=== PATIENT | female | born 1995 | race Caucasian/White ===

== ENCOUNTER 2023-12-01 15:18 | Outpatient (OUT) | payer BC, SELFPAY ==
[2023-12-01 16:05] LABS: Alanine Aminotransferase 39 U/L (14-59); Albumin Globulin Ratio 0.8; Albumin Level 3.5 g/dL (3.4-5.0); Alkaline Phosphatase 115 U/L (46-116); Anion Gap 12.1; Aspartate Amino Transferase 20 U/L (15-37); Bilirubin Total 0.5 mg/dL (0.2-1.0); Calcium 9.1 mg/dL (8.5-10.1); Carbon Dioxide 25.8 mmol/L (21.0-32.0); Chloride 103 mmol/L (98-107); Chol HDL Ratio 3.8; Cholesterol 179 mg/dL (<=200); Estimated GFR (African America >60 (>=60); Estimated GFR (Non-African Ame >60 (>=60); Globulin 4.3 g/dL; Glucose 82 mg/dL (74-106); HDL Cholesterol 47 mg/dL (40-60); LDL Cholesterol Calculated 116.6 mg/dL; Potassium 3.9 mmol/L (3.5-5.1); Sodium 137 mmol/L (136-145); TSH W/ REFLEX FT4 2.481 uIU/mL (0.358-3.740); Total Protein 7.8 g/dL (6.4-8.2); Triglycerides 77 mg/dL (<=150); VLDL CHOLESTEROL 15.4 mg/dL
[2023-12-03 06:10] LABS: Vitamin B12 1079 pg/mL (232-1245)
== END 2023-12-01 15:19 | disposition home or self-care (01) ==
PROVIDERS: Visit Provider Nurse Practitioner Family
DX: I10 Essential (primary) hypertension (principal); F90.9 Attention-deficit hyperactivity disorder, unspecified type; E66.3 Overweight; E88.819 Insulin resistance, unspecified; E55.9 Vitamin D deficiency, unspecified
CPT/HCPCS: 36415; 80053; 80061; 82306; 82607; 84443

== ENCOUNTER 2024-02-03 10:50 | Outpatient (OUT) | payer BC, SELFPAY ==
[2024-02-03 11:09] LABS: Basophils Percent Auto 0.4 % (0.2-2.0); Eosinophils Absolute Auto 0.1 10^3/uL (0.0-0.7); Eosinophils Percent Auto 1.3 % (0.9-7.0); Hematocrit 38.2 % (36.0-48.0); Hemoglobin 12.3 g/dL (12.0-16.0); Immature Granulocytes Abs Auto 0.03 10^3/uL (0.00-0.03); Immature Granulocytes Pct Auto 0.4 % (0.0-0.5); Lymphocytes Absolute Auto 1.8 10^3/uL (1.2-3.8); Lymphocytes Percent Auto 23.5 % (20.5-60.0); Mean Corpuscular HGB Conc 32.2 g/dL (29.9-35.2); Mean Corpuscular Hemoglobin 27.5 pg (26.7-34.0); Mean Corpuscular Volume 85.5 fL (81.0-99.0); Mean Platelet Volume 8.9 fL (9.5-13.5); Monocytes Absolute Auto 0.5 10^3/uL (0.3-0.8); Monocytes Percent Auto 6.7 % (1.7-12.0); Neutrophils Absolute Auto 5.3 10^3/uL (1.4-6.5); Neutrophils Percent Auto 67.7 % (43.0-75.0); Platelet Count 343 10^3/uL (150-450); Red Blood Count 4.47 10^6/uL (4.20-5.40); Red Cell Distribution Width 14.4 % (11.0-15.0); White Blood Count 7.8 10^3/uL (4.0-11.0)
--- OUTSIDE RECORDS SUMMARY | 2024-02-03 11:10 | XMS_ITS | CCD ---
Author Organization [facility] Care Team Providers Care Fibrous Wallboard Inspector Name Role Phone SANTOS ROLLINS Attending Unavailable Javier CHAVIRA, Cheryl Villanueva Unavailable Medications Current Medications Medication Drug Class(es) Dates Sig (Normalized) Sig (Original) 24 hr amphetamine aspartate 5 mg / amphetamine sulfate 5 mg / dextroamphetamine saccharate 5 mg / dextroamphetamine sulfate 5 mg extended release oral capsule (4 sources) Central Nervous System Stimulant Start: 11-24-2023 take 1 capsule by mouth once daily in the morning amphetamine-dext roamphetamine XR (ADDERALL XR) 20 mg capsule Take 20 mg by mouth every morning. 11/24/2023 Active Start: 11-12-2023 End: 11-13-2023 take 1 tablet by mouth once daily Dextroamphetamine-Amphetamine (Adderall) 10 mg tablet Discontinued 10 MG PO Daily November 12, 2023 12:00am November 13, 2023 11:04am 24 hr buPROPion hydrochloride 150 mg extended release oral tablet (4 sources) Aminoketone Start: 11-12-2023 take 1 tablet by mouth once daily in the morning Bupropion Hcl (Wellbutrin Xl) 150 mg tablet extended release 24 hr Active 150 MG PO Every morning November 12, 2023 12:00am Dextroamphetamine-Amp hetamine (3 sources) Start: 11-13-2023 take 20 mg by mouth once daily in the morning Dextroamphetamine-A mphetamine Active 20 MG PO Every morning November 13, 2023 12:00am Completed/Discontinued Medications Medication Drug Class(es) Dates Sig (Normalized) Sig (Original) medroxyPROGESTERone acetate 10 mg oral tablet (3 sources) Progestin Start: End: take 1 tablet by mouth once daily Medroxyprogesterone (Provera) 10 mg tablet Discontinued 10 MG PO Daily November 12, 2023 12:00am November 13, 2023 11:05am Problems Problem Classification Problem Date Documented Da te Episodic/Chronic Administrative/social admission (3 sources) Patient encounter status; Translations: [Persons encountering health services in other specified circumstances] 12-15-2023 Episodic Anxiety disorders (11 sources) Posttraumatic stress disorder; Translations: [Post-traumatic stress disorder, unspecified] 11-12-2023 Chronic Attention-deficit, conduct, and disruptive behavior disorders (3 sources) Attention deficit hyperactivity disorder; Translations: [Attention-deficit hyperactivity disorder, unspecified type] 11-12-2023 Chronic Attention-deficit, conduct, and disruptive behavior disorders (3 sources) Attention-deficit hyperactivity disorder, unspecified type; Translations: [Attention deficit disorder with hyperactivity] 11-13-2023 Chronic Diabetes mellitus without complication (6 sources) Prediabetes; Translations: [Prediabetes] 11-13-2023 Episodic Essential hypertension (6 sources) Elevated blood pressure; Translations: [Essential (primary) hypertension] 11-12-2023 Chronic Headache; including migraine (4 sources) Migraine; Translations: [Migraine, unspecified, not intractable, without status migrainosus] 12-05-2023 Chronic Miscellaneous mental health disorders (1 source) Gender identity disorder of adulthood; 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] 12-15-2023 Chronic Mood disorders (3 sources) Major depressive disorder; Translations: [Major depressive disorder, single episode, unspecified] 11-12-2023 Chronic Nutritional deficiencies (6 sources) Vitamin D deficiency; Translations: [Vitamin D deficiency, unspecified] 11-13-2023 Chronic Other female genital disorders (3 sources) Abnormal uterine bleeding; Translations: [Other specified abnormal uterine and vaginal bleeding] 11-12-2023 Chronic Other nutritional; endocrine; and metabolic disorders (6 sources) Insulin resistance; Translations: [Insulin resistance] 11-13-2023 Chronic Other nutritional; endocrine; and metabolic disorders (3 sources) Overweight; Translations: [Overweight] 11-12-2023 Episodic Other nutritional; endocrine; and metabolic disorders (3 sources) Overweight; Translations: [Overweight] 11-13-2023 Episodic Residual codes; unclassified (3 sources) Gender identity finding; Translations: [Other specified health status] 11-12-2023 Episodic Results Test Name Value Interpretation Reference Range Facil ity CNOVon 12-15-2023 CNOV Office Visit (INTLKB) ---- CHA HWANG ([id number]) 1995 F Date Time Provider Department 12/15/23 2:00 PM SANTOS ROLLINS INTLKB During your visit today, we recorded the following information about you: Pulse Respiration Blood pressure Weight 82/minute 18/minute 137/79 129 kg Height Last Period 1.777 m 11/27/23 Santos Rollins MD 12/15/2023 3:04 PM Signed NEW PATIENT HISTORY AND PHYSICAL EXAM Cha Hwang is a 28 year old female presenting for [facility] ([facility]). HISTORY OF PRESENT ILLNESS Intake questionnaire was not completed prior to the visit and was discussed in detail as below. [facility] Transgender Surgery and Medicine Program (TSMP) Intake Form Name: John or Jason Pronouns: he/him SO: bisexual GI: transgender male Brand New Gender Care: Yes Sexual Hx Relationship: group home partner(named Arnol) nonbinary, AFAB Sexual active in last 6 months: Yes How many partners in the last 6 months: one What types of sex do you engage in: Oral Sexual function/concerns: No Maintains libido and activity LMP: 11/27, regular cycles, moderate to heavy, not painful just cramping What is the highest level of education you completed? 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 If yes, what do you smoke? No tobacco How much/often do you smoke #packs/cigarettes per day/week? Are you interested in smoking cessation? Do you drink alcohol? If yes, what do you drink? Joanna,mixed drinks How much/often do you drink per day/week? 2-3 How can we help you today? First visit/New patient Well adult/physical Mental/Emotional health concern Fertility counseling Pap/pelvic exam HIV screening/testing HIV care or prophylaxis Sexually transmitted infection screening/treatment Gender affirmation therapy - hormone initiation Gender affirmation therapy - hormone continuation Support with Coming Out/Sexual Orientation/Gender Identity Referral services [for what service(s)?] Do we have your permission to add an LGBTQ+ indicator on your demographics? Past Medical History (check all that apply): What health concerns or problems have you been told you have? High Blood Pressure/Hypertensi on Diabetes High cholesterol Heart Disease/Atheroscler osis Kidney Disease Asthma COPD/Emphysema Liver Disease Hep B/C infection Gallstones/Gallblad luis Disease Gastroesophageal Reflux/GERD Constipation Thyroid condition Overweight/Obesity Sleep apnea Cancer (if yes, what kind(s) Sexually Transmitted Infection, If yes, which infections Gonorrhea Chlamydia Non-gonoccocal urethritis (SANTY) Syphilis Pelvic Inflammatory Disease (PID) Genital warts/HPV infection Herpes/HSV genital infection Mental/Emotional Health Concerns: Depression- 7 yrs old dx Anxiety Problems with drugs/substances Problems with alcohol Tobacco smoking Surgical History: Please list any surgical procedures you have had: wisdom and gallbladder removal Allergies: Please list your food and medication allergies. Other Current/Previous Health Providers: Primary Care Provider: Cheryl Paulson [place] following for other health needs Mental Health Provider: Wilbert gutierrez Family History: Does a member of your family have a history of any of the following conditions (If so, who)? Deep vein thrombosis-there is a hx of clotting disorder but patient is unsure details Pulmonary embolism Heart attack Stroke Hypertension/High blood pressure Breast Cancer-PGM,70s Ovarian Cancer Uterine Cancer Testicular Cancer Please List any other health Conditions your family members live with: Gender Affirmation History: Identifies as a man for over 10 years, wanted to start hormone therapy but did not have insuranse coverage I was always a nick boy , dont call me lady, dont call me ma'am wanted to do boy stuff. Started to feel they were different when puberty started Did not speak with a provider at this time Had a name for it at 16 y.o considered themselves NB And at 18 started to identify as trans, was able to talk to a provider at age 20 years. started using Jason as their name at age 18 y.o Came out to trans to parents a few years ago, they are now support In college felt food to be themselves Has overall have good experience where people have been re Goals of Care: I want to be husky and hair I want my voice to drop I want facial hair Would be interested in GAS mastectomy Interested in Injection therapy Fertility Preservation/Contra ception: They would be interested in family but not biological children No desire for Additional questions: None HISTORIES No family history on file. No past medical history on file. No past surgical history on file. (more content not included)... Normal [facility] 12-14-2020 Consent [id number]:127 Normal [facility] In office Testingon 12-15-19 21 In office Testing [id number]:127 [facility] Registrationon 12-14-2020 Registration [id number]:127 [facility] Vital Signs Date Time Vital Sign Value Performing Clinician Dannie mckeon 12-26-2023 08:57-0400 Body height 179.[address] [facility] 12-26-2023 08:57-0400 Body mass index (BMI) [Ratio] 40.7 kg/m2 [facility] 12-26-2023 08:57-0400 Body weight 130.[address] [facility] 12-26-2023 08:57-0400 Diastolic blood pressure 77 mm[Hg] [facility] 12-26-2023 08:57-0400 Heart rate 73 /min [facility] 12-26-2023 08:57-0400 Respiratory rate 18 /min [facility] 12-26-2023 08:57-0400 SaO2% (BldA) [Mass fraction] 96 % [facility] 12-26-2023 08:57-0400 Systolic blood pressure 109 mm[Hg] [facility] 12-15-2023 13:55-0400 Body height 177.7 cm Santos Rollins MD Work Phone: [facility] 12-15-2023 13:55-0400 Body mass index (BMI) [Ratio] 40.85 kg/m2 Santos Rollins MD Work Phone: [facility] 12-15-2023 13:55-0400 Body weight 129 kg Santos Rollins MD Work Phone: [facility] 12-15-2023 13:55-0400 Diastolic blood pressure 79 mm[Hg] Santos Rollins MD Work Phone: [facility] 12-15-2023 13:55-0400 Heart rate 82 /min Santos Rollins MD Work Phone: [facility] 12-15-2023 13:55-0400 Respiratory rate 18 /min Santos Rollins MD Work Phone: [facility] 12-15-2023 13:55-0400 Systolic blood pressure 137 mm[Hg] Santos Rollins MD Work Phone: [facility] 11-13-2023 11:03-0400 Body height 179.[address] [facility] 11-13-2023 11:03-0400 Body mass index (BMI) [Ratio] 41.5 kg/m2 [facility] 11-13-2023 11:03-0400 Body weight 133.[address] [facility] 11-13-2023 11:03-0400 Diastolic blood pressure 72 mm[Hg] [facility] 11-13-2023 11:03-0400 Heart rate 67 /min [facility] 11-13-2023 11:03-0400 Respiratory rate 18 /min [facility] 11-13-2023 11:03-0400 SaO2% (BldA) [Mass fraction] 97 % [facility] 11-13-2023 11:03-0400 Systolic blood pressure 110 mm[Hg] [facility] Encounters Encounter Date Encounter Type Care Provider Facility Start: 12-26-2023 End: 12-26-2023 ambulatory [facility] Work Phone: Start: 12-26-2023 End: 12-26-2023 Patient encounter procedure [facility] Work Phone: Start: 12-15-2023 End: 12-15-2023 ambulatory SANTOS ROLLINS Facility:[facility] Start: 12-15-2023 End: 12-15-2023 Office outpatient new 45 minutes Santos Rollins MD Work Phone: [facility] Comment on above: Gender dysphoria in adult (Primary Dx); Screening for depression; Encounter for screening examination for other mental health and behavioral disorders; Encounter before starting medication Start: 12-10-2023 End: 12-10-2023 ambulatory [facility] Work Phone: Start: 12-10-2023 End: 12-10-2023 Patient encounter procedure [facility] Work Phone: Start: 11-13-2023 End: 11-13-2023 ambulatory [facility] Work Phone: Start: 11-13-2023 End: 11-13-2023 Patient encounter procedure [facility] Work Phone: Procedures Date Procedure Procedure Detail Performing Clinician Start: 12-15-2023 Adult depression screening assessment Santos Rollins MD Work Phone: Plan of Treatment Date Care Activity Detail Author Start: 12-14-2024 Anxiety Screening Anxiety Screening [facility] Start: 12-14-2024 Depression Screening Depression [facility] Start: 02-09-2024 End: 02-09-2024 Patient encounter procedure 02/09/2024 10:00 AM EST Office Visit [facility] [id number] [place] [phone] [place] Rollins MD [id number] [place] [address]. [place] [address] F/up [facility] Comment on above: F/up Start: 12-15-2023 End: 03-15-2024 CBC W Auto Differential panel - Blood COMPLETE BLOOD COUNT AND DIFFERENTIAL Lab Routine Encounter before starting medication Expected: 12/15/2023, Expires: 03/15/2024 [facility] Comment on above: Expected: 12/15/2023 , Expires: 03/15/2024 Start: 12-15-2023 End: 03-15-2024 Comprehensive metabolic 2000 panel - Serum or Plasma COMPREHENSIVE METABOLIC PANEL Lab Routine Encounter before starting medication Expected: 12/15/2023, Expires: 03/15/2024 [facility] Work Phone: Comment on above: Expected: 12/15/2023 , Expires: 03/15/2024 Start: 12-15-2023 End: 03-15-2024 Lipid 1996 panel - Serum or Plasma LIPID PANEL BASIC Lab Routine Encounter before starting medication Expected: 12/15/2023, Expires: 03/15/2024 [facility] Comment on above: Expected: 12/15/2023 , Expires: 03/15/2024 Start: 11-09-2023 Covid-19 Vaccine ( season) Covid-19 Vaccine () [facility] Start: 11-09-2023 Influenza vaccination Influenza Vacc ine (#1) [facility] Start: 05-27-2016 Screening for malign ant neoplasm of cervix Cervical Cancer Screening [facility] Start: 05-27-2014 Hepatitis B Vaccine (1 of 3 - 19+ 3-dose series) Hepatitis B Vaccine (1 of 3 - 19+ 3-dose series) [facility] Start: 05-27-2014 Urine microalbumin profile DTaP,Tdap,Td Vaccine (1 - Tdap) [facility] Start: 05-27-2013 Hepatitis C screening Hepatitis C Sc reening [facility] Start: 05-27-2013 HIV screening HIV Screening [facility] Payers Date Payer Category Payer Unknown [employer] BLUE C[employer] PPO OOS [id number] 2023-Present [phone] [address] [place] [address] PPO [id number] 2023 Unknown [id number] Social History Date Type Detail Facility Start: 11-13-2023 Tobacco smoking status NHIS Ex-smoker (finding) [facility] Start: 1995 Sex Assigned At Female [facility] Tobacco smoking stat us DEIS Tobacco smoking consumption unknown [facility] Start: 12-15-2023 History of Social function [facility] Start: 12-15-2023 Patient Health Questionnaire 2 item (PHQ-2) [Reported] [facility] Adult Depression Screening Assessment 0 [facility] Start: 1995 Sex assigned at Not on file [facility] Start: 08-23-2023 Gender identity Identifies as female gender (finding) [facility] Instructions 12-15-2023 Patient Instructions Note Date & Type Note Facility 12-15-2023 Instructions Santos Rollins MD - 12/15/2023 2:21 PM EDT Images from the original note were not included. Here is some information below. We work with Urology (bottom) and Plastic Surgery (top) to assess us with surgical transition. [employer] for Transgender Health (WPATH) surgical criteria for gender affirmation care including: Being on Gender Affirmation Hormonal Treatment (GAHT) for 1 year AND -1 Letter of Recommendation (GRICELDA) from a mental health professional (MHP) familiar with the care of gender dysphoria for top surgery -2 GRICELDA from MHPs for bottom surgery. I encouraged you to check with their insurance company on any specific WPATH requirements other than these. If you are planning for bottom surgery you will need to have laser hair removal so decrease risk of infection and come out with the best results. Please let me know when consults you would like me to place for you. Dr. Alicia Buck Resource for your gender journey [facility] Provider Specialty Location Contact Numbers Carol Reveles MD Adults [facility] p: [phone] f: [phone] Cami Cano PsyD Pediatrics [facility] p: [phone] Mark Andrade MD Pediatrics [facility] p: [phone] f: [phone] Mely Davila Pediatrics Carmelita Zuniga MD Pediatrics [facility] p: [phone] MIGUEL ANGEL Provider Specialty Location Contact Numbers Paulo Blanca LPC Male [facility] [address] [place] [address] p: [phone] [facility] Adults Adolescents (15+) [address] [facility] [place] [address] [facility] [address] [place], [place] [address] [address] [place] [address] [address] [facility] [address] [place] [address] P: [phone] F: [phone] P: [phone] F: [phone] P: [phone] F: [phone] P: [phone] F: [phone] Pearl Rivas MD [facility] [address] [place] [address] p: [phone] f: [phone] [facility] Adults Pediatrics [address] [facility] [place] [address] p: [phone] Maria Eugenia Clifford ENERGY SYSTEMS ENGINEER, TRIAL LAWYER Female Adults Pediatrics [place] [address] [facility] [address] [place] [address] p: [phone] Vincenzo Palacios PsyD Adults [address] [place] [address] p: [phone] Marga Bravo MA, LPCC, ATR Adults Pediatrics [address] [facility] [address] [place] [address] p: [phone] f: [phone] [facility] [address] [place], [place] [address] [facility] [address] [place], [place] p: [phone] [facility] Adults Peds 6+ [address] [address] White [facility] [address] [place] [address] p: [phone] [facility]ults Pediatrics [address] [place] [address] p: [phone] Annmarie Pérez Psychologist, PhD Adults Adolescents [facility] [address] [facility] [address] [place], [place] [address] p: [phone] [employer] [facility] Adults Pediatrics [address] [place] [address] p: [phone] Marcel aBshir, MSSA, SERVICE CREW SUPERVISOR Adults Pediatrics [facility] [address] [place] [address] p: [phone] Mack Yepez, PhD Adults Pediatrics [address] [place] [address] p: [phone] Vane Lopez, PhD, ENERGY SYSTEMS ENGINEER, MEd, TRIAL LAWYER-S, ROTARY DRIER [facility] Adults Adolescence [address] [place], [place] [address] p: [phone] [facility] Adults Pediatrics [address] [place] [address] p: [phone] [facility] [place] [facility] Pediatric[facility] [address] [place] [address] [place] [address] p: [phone] f: [phone] [facility] Adults Pediatrics [address] [place] [address] p: [phone] [facility] Adults [email or web address] p: [phone] Rosario Anguiano MA, [facility] Adults Pediatrics [address] [place] [address] p: [phone] Rachel Haley-S Adults [facility] [address] [place] [address] p: [phone] f: [phone] Sammy Hudson, JENISE, M.Ed., M.S. Adolescents Adults [facility], [facility] [address] [place], [place] [address] p: [phone] Emilee HoganW, TRIAL LAWYER-S, [facility] Adults [address] [place] [address] p: [phone] Jean Ramos [facility] [address] [place] [address] p: [phone] [facility] (4+) Adolescents Adults [address] [place] [address] [address] [facility] [place] [address] p: [phone] [facility]IGUEL ANG[facility] [address] [place] [address] p:[phone] f: [phone] [facility] Adults Pediatric [facility], and [facility] p: [phone] Arlin Marinelli, PhD, MA, HOSPICE LIAISON, NCC [facility] [address] [place] [address] p: [phone] [facility] Adults Peds 3+ [address] [place] [address] [place] [address] [place], [place] [address] p: [phone] Anita Ramirez MSSA, LISW-S Adults Pediatric [facility] [address] [place] [address] p: [phone] f: [phone] Frida Moreira Adolescents Pediatric [facility] [address] [place] [address] p: [phone] Katlyn Arechiga [facility] Adolescents (11+) Adults [facility] [address] [place] [address] p: [phone] Nidhi Jasmine, [facility] Adolescents (14+) Adults [facility] [address] [place] [address] p: [phone] f: [phone] [email or web address] Adults [facility] [address] [place] [address] P: [phone] Angel Byrne Adults Pediatric [facility] [address] [place] [address] p: [phone] Yanique Marti, AILEEN. ATR Adults Pediatric [facility] [address] [place] [address] p: [phone] f: [phone] Khadra CelesteW-S Adults [facility] [address] [place] [address] p: [phone] Za Kirkpatrick DO, FAPA Adults Pediatric [address] [place] [address] p: [phone] f: [phone] Dewy Rose Rossy Copeland ENERGY SYSTEMS ENGINEER, SERVICE CREW SUPERVISOR Adults [facility] [address] [place] [address] p: [phone] f: [phone] Yanique Henry PhD Adolescents Adults [facility] [address] [place], [place] [address] p: [phone] [facility] Adults Pediatrics [address] [place] [address] p: [phone] f: [phone] Claudia Goncalves RN, TRIAL LAWYER-S Adolescent (14+) Adults Online via [employer] in [place] [email or web address] [facility] Adults Pediatrics [address] [facility] [facility] [address] p: [phone] f: [phone] [facility] Adults Pediatrics [address] [facility] [address] p: [phone] f: [phone] Erica Gonzales, STEVEA, TRIAL LAWYER, CDCA Adults Pediatrics [facility] [address] [facility] [address] [place] [address] p: [phone] f: [phone] Robyn Gotti Adolescents Adults [facility] [address] [place] [address] p: [phone] Cassidy Florence [facility] [address] [place] [address] p: [phone] Marlys Echeverria-S [facility] [employer] [address] [facility] [address] p: [phone] Lor Baldwin MA, PCC-S [facility] [address] [facility] [address] [place] [address] p: [phone] f: [phone] Yuki Beltran, TRIAL LAWYER-S [facility] [address] [place] [address] p: [phone] f: [phone] Gonzalo Flowers TRIAL LAWYER Adolescents (14+) Adults [facility] [address] [place] [address] p: [phone] Kyleigh Daugherty, TRIAL LAWYER [facility] [address] [facility] [address] [place] [address] p: [phone] [facility], [facility] [address] [place] [address] p: [phone] f: [phone] Carli Land PsyD, [facility] (6+) Adults [facility] [address] [place] [address] p: [phone] Cherie Bucio(clinical counselor) Adolescents Adults [facility] [address] [place] [address] p: [phone] [facility] Josie Archuleta Psy.D., [facility] [address] [place] [address] p: [phone] Edith Bridget Adolescents (11+) Adults [address] [place] [address] p: [phone] f: [phone] Tamiko Khan MS, SERVICE CREW SUPERVISOR, PCC-S Adolescents (14+) Adults [facility] [address] [facility] [address] [place] [address] p: [phone] Ramiro Mccauley, ENERGY SYSTEMS ENGINEER, SERVICE CREW SUPERVISOR Adolescents (14+) Adults [address] [place] [address] p: [phone] [facility] Lashell Encarnacion [address] [place] [address] p: [phone] Marilynn Alegria, ENERGY SYSTEMS ENGINEER, TRIAL LAWYER-S, INDUSTRIAL RELATIONS MANAGER [facility] [place] [address] [place] [address] o: [phone] c: [phone] f: [phone] [email or web address] Annmarie Grover MA, [facility] Adolescents Adults [facility] [address] [place], [place] [address] p: [phone] f: [phone] [place] State Michael MoralesPh.D. [facility] [address] [facility] [address] [place] [address] p: [phone] Lary Jain PhD [facility] [address] [facility] [address] [place] [address] p: [phone] Jeane Garcia, INDUSTRIAL RELATIONS MANAGER, ROTARY DRIER Adults [facility] [address] [facility], [address] [address] [place] [address] p: [phone] [facility] [address] [place] [address] p: [phone] Oli Damon MS, [facility] Pediatrics (6+) [facility] [address] [place] [address] [place] [address] p: [phone] f: [phone] Omar Ac MA, HOSPICE LIAISON [address] [facility] [address] [place] [address] p: [phone] Vane Pal MA, [facility] Adolescents (14+) Adults [address] [facility] [address] [place] [address] p: [phone] documented in this encounter [facility] Progress note 12-15-2023 Note Date & Type Note Facility 12-15-2023 Note HNO ID: [id number] Author: SANTOS ROLLINS MD Service: ? Author Type: Physician Type: Progress Notes Filed: 12/15/2023 15:04 Note Text: NEW PATIENT HISTORY AND PHYSICAL EXAM Cha Hwang is a 28 year old female presenting for [facility] ([facility]). HISTORY OF PRESENT ILLNESS Intake questionnaire was not completed prior to the visit and was discussed in detail as below. [facility] Transgender Surgery and Medicine Program (TSMP) Intake Form Name: John or Jason Pronouns: he/him SO: bisexual GI: transgender male Brand New Gender Care: Yes Sexual Hx Relationship: group home partner(named Arnol) nonbinary, AFAB Sexual active in last 6 months: Yes How many partners in the last 6 months: one What types of sex do you engage in: Oral Sexual function/concerns: No Maintains libido and activity LMP: 11/27, regular cycles, moderate to heavy, not painful just cramping What is the highest level of education you completed? 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 If yes, what do you smoke? No tobacco How much/often do you smoke #packs/cigarettes per day/week? Are you interested in smoking cessation? Do you drink alcohol? If yes, what do you drink? Joanna,mixed drinks How much/often do you drink per day/week? 2-3 How can we help you today? First visit/New patient Well adult/physical Mental/Emotional health concern Fertility counseling Pap/pelvic exam HIV screening/testing HIV care or prophylaxis Sexually transmitted infection screening/treatment Gender affirmation therapy - hormone initiation Gender affirmation therapy - hormone continuation Support with Coming Out/Sexual Orientation/Gender Identity Referral services [for what service(s)?] Do we have your permission to add an LGBTQ+ indicator on your demographics? Past Medical History (check all that apply): What health concerns or problems have you been told you have? High Blood Pressure/Hypertension Diabetes High cholesterol Heart Disease/Atherosclerosis Kidney Disease Asthma COPD/Emphysema Liver Disease Hep B/C infection Gallstones/Gallbladder Disease Gastroesophageal Reflux/GERD Constipation Thyroid condition Overweight/Obesity Sleep apnea Cancer (if yes, what kind(s) Sexually Transmitted Infection, If yes, which infections Gonorrhea Chlamydia Non-gonoccocal urethritis (SANTY) Syphilis Pelvic Inflammatory Disease (PID) Genital warts/HPV infection Herpes/HSV genital infection Mental/Emotional Health Concerns: Depression- 7 yrs old dx Anxiety Problems with drugs/substances Problems with alcohol Tobacco smoking Surgical History: Please list any surgical procedures you have had: wisdom and gallbladder removal Allergies: Please list your food and medication allergies. Other Current/Previous Health Providers: Primary Care Provider: Cheryl Paulson [place] following for other health needs Mental Health Provider: Not matt Family History: Does a member of your family have a history of any of the following conditions (If so, who)? Deep vein thrombosis-there is a hx of clotting disorder but patient is unsure details Pulmonary embolism Heart attack Stroke Hypertension/High blood pressure Breast Cancer-PGM,70s Ovarian Cancer Uterine Cancer Testicular Cancer Please List any other health Conditions your family members live with: Gender Affirmation History: Identifies as a man for over 10 years, wanted to start hormone therapy but did not have insuranse coverage I was always a nick boy , dont call me lady, dont call me ma'am wanted to do boy stuff. Started to feel they were different when puberty started Did not speak with a provider at this time Had a name for it at 16 y.o considered themselves NB And at 18 started to identify as trans, was able to talk to a provider at age 20 years. started using Jason as their name at age 18 y.o Came out to trans to parents a few years ago, they are now support In college felt food to be themselves Has overall have good experience where people have been re Goals of Care: I want to be husky and hair I want my voice to drop I want facial hair Would be interested in GAS mastectomy Interested in Injection therapy Fertility Preservation/Contraception: They would be interested in family but not biological children No desire for Additional questions: None HISTORIES No family history on file. No past medical history on file. No past surgical history on file. Allergies: ALLERGIES No Known Allergies Medications: buPROPion XL (WELLBUTRIN XL) 150 mg 24 hr tablet Take 150 mg by mouth once daily. amphetamine-dextroamphetamine XR (ADDERALL XR) 20 mg capsule Take 20 mg by mouth every morning. REVIEW OF SYSTEMS All systems were reviewed and were negative ex (more content not included)... [facility] History of Present illness Narrative 12-15-2023 Santos Rollins MD - 12/15/2023 1:51 PM EDT Note Date & Type Note Facility 12-15-2023 History of Presen t illness Narrative NEW PATIENT HISTORY AND PHYSICAL EXAM Cha Hwang is a 28 year old female presenting for [facility] ([facility]). HISTORY OF PRESENT ILLNESS Intake questionnaire was not completed prior to the visit and was discussed in detail as below. [facility] Transgender Surgery and Medicine Program (TSMP) Intake Form Name: John or Jason Pronouns: he/him SO: bisexual GI: transgender male Brand New Gender Care: Yes Sexual Hx Relationship: group home partner(named Arnol) nonbinary, AFAB Sexual active in last 6 months: Yes How many partners in the last 6 months: one What types of sex do you engage in: Oral Sexual function/concerns: No Maintains libido and activity LMP: 11/27, regular cycles, moderate to heavy, not painful just cramping What is the highest level of education you completed? 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 If yes, what do you smoke? No tobacco How much/often do you smoke #packs/cigarettes per day/week? Are you interested in smoking cessation? Do you drink alcohol? If yes, what do you drink? Joanna,mixed drinks How much/often do you drink per day/week? 2-3 How can we help you today? First visit/New patient Well adult/physical Mental/Emotional health concern Fertility counseling Pap/pelvic exam HIV screening/testing HIV care or prophylaxis Sexually transmitted infection screening/treatment Gender affirmation therapy - hormone initiation Gender affirmation therapy - hormone continuation Support with Coming Out/Sexual Orientation/Gender Identity Referral services [for what service(s)?] Do we have your permission to add an LGBTQ+ indicator on your demographics? Past Medical History (check all that apply): What health concerns or problems have you been told you have? High Blood Pressure/Hypertension Diabetes High cholesterol Heart Disease/Atherosclerosis Kidney Disease Asthma COPD/Emphysema Liver Disease Hep B/C infection Gallstones/Gallbladder Disease Gastroesophageal Reflux/GERD Constipation Thyroid condition Overweight/Obesity Sleep apnea Cancer (if yes, what kind(s) Sexually Transmitted Infection, If yes, which infections Gonorrhea Chlamydia Non-gonoccocal urethritis (SANTY) Syphilis Pelvic Inflammatory Disease (PID) Genital warts/HPV infection Herpes/HSV genital infection Mental/Emotional Health Concerns: Depression- 7 yrs old dx Anxiety Problems with drugs/substances Problems with alcohol Tobacco smoking Surgical History: Please list any surgical procedures you have had: wisdom and gallbladder removal Allergies: Please list your food and medication allergies. Other Current/Previous Health Providers: Primary Care Provider: Cheryl Blunt following for other health needs Mental Health Provider: Wilbert gutierrez Family History: Does a member of your family have a history of any of the following conditions (If so, who)? Deep vein thrombosis-there is a hx of clotting disorder but patient is unsure details Pulmonary embolism Heart attack Stroke Hypertension/High blood pressure Breast Cancer-PGM,70s Ovarian Cancer Uterine Cancer Testicular Cancer Please List any other health Conditions your family members live with: Gender Affirmation History: Identifies as a man for over 10 years, wanted to start hormone therapy but did not have insuranse coverage I was always a nick boy , dont call me lady, dont call me ma'am wanted to do boy stuff. Started to feel they were different when puberty started Did not speak with a provider at this time Had a name for it at 16 y.o considered themselves NB And at 18 started to identify as trans, was able to talk to a provider at age 20 years. started using Jason as their name at age 18 y.o Came out to trans to parents a few years ago, they are now support In college felt food to be themselves Has overall have good experience where people have been re Goals of Care: I want to be husky and hair I want my voice to drop I want facial hair Would be interested in GAS mastectomy Interested in Injection therapy Fertility Preservation/Contraception: They would be interested in family but not biological children No desire for Additional questions: None HISTORIES No family history on file. No past medical history on file. No past surgical history on file. Allergies: ALLERGIES No Known Allergies Medications: buPROPion XL (WELLBUTRIN XL) 150 mg 24 hr tablet Take 150 mg by mouth once daily. amphetamine-dextroamphetamine XR (ADDERALL XR) 20 mg capsule Take 20 mg by mouth every morning. REVIEW OF SYSTEMS All systems were reviewed and were negative except what was noted in the HPI PHYSICAL EXAM 12/15/23 1355 BP: 137/79 Pulse: 82 Resp: 18 Weight: 129 kg (284 lb 6.3 oz) Height: 177.7 cm (5' 9.96 ) Physical Exam Constitutional: General: She is not in acute distress. Appearance: Normal appearance. She is obese. She is not ill-appearing. ASSESSMENT/PLAN: 1. Gender dysphoria in adult - ICD9: 302.85, ICD10: F64.0 (primary diagnosis) #Gender Incongruence We reviewed the Informed Consent process for testosterone-based gender affirmation hormonal therapy (GAHT) at the [facility] Transgender Surgery & Medicine Program. The patient's goals of care were discussed and initial questions on the informed consent process were answered. In particular, today we discussed the reversible, partially reversible and irreversible effects of testosterone-based GAHT. The included effects on fertility, fertility preservation, contraception, medication effects, and side effects of testosterone-based GAHT. The patient's gender journey/experience ,goals of care , fertility preservation/family planning/contraception needs will continued to be discussed at a subsequent visit. We discussed that a complete exam and review of labs and informed consent is needed prior to starting gender affirmation care. I encouraged mental health support during transition process. We discussed the patient's reproductive care needs and offered referral patient to Miguel Vernon, or Romeo in Gynecology to explore fertility preservation/contraception needs. The patient declined a referral for fertility preservation. Labs ordered today - BMP, CBCD, lipids. RTC in 3 months or sooner to continue review informed consent, discuss questions/concerns, discuss preferences regarding initial dosing ( typical dosing), formulation of GAHT that the patient desires (testosterone), and perform a physical exam. Prior to start would like to have information about family clotting disorder. Patient was unsure name of disease, noted in Father. Pt provided the resource -Trans Bodies, Trans Selves as a GAHT care reference. List of mental health resources provided 2. Screening for depression - ICD9: V79.0, ICD10: Z13.31 -ve today - DEPRESSION SCREENING 3. Encounter for screening examination for other mental health and behavioral disorders - ICD9: V79.8, ICD10: Z13.39 - dx with KARI, known hx currently stable - ANXIETY SCREENING 4. Encounter before starting medication - ICD9: V70.9, ICD10: Z76.89 - Planning for Outside lab, patient lives in [facility] ~1.5 hours away - COMPLETE BLOOD COUNT AND DIFFERENTIAL - COMPREHENSIVE METABOLIC PANEL - LIPID PANEL BASIC - COMPREHENSIVE METABOLIC PANEL - COMPLETE BLOOD COUNT AND DIFFERENTIAL - LIPID PANEL BASIC Santos Rollins MD (She/Her) Internal Medicine, [facility] I spent a total of 59 minutes on the date of the service which included preparing to see the patient, [id number] patient care, completing clinical documentation, counseling and educating the patient/family/caregiver, and ordering medications, tests, or procedures. documented in this encounter [facility] Chief complaint+Reason for visit Narrative Note Date & Type Note Facility Chief complaint+Reason for v isit Narrative Reason for Visit ADHD Elevated blood pressure reading in office with diagnosis of hypertension Insulin resistance Overweight Prediabetes Vitamin D deficiency, unspecified [facility] Work Phone: Chief complaint+Reason for visit Narrative Note Date & Type Note Facility Chief complaint+Reason for v isit Narrative Reason for Visit ADHD Anxiety and depression Elevated blood pressure reading in office with diagnosis of hypertension Insulin resistance Migraine Overweight Panic attack Prediabetes Vitamin D deficiency, unspecified [facility] Work Phone: Chief complaint+Reason for visit Narrative Note Date & Type Note Facility Chief complaint+Reason for v isit Narrative Reason for Visit ADHD Anxiety and depression Elevated blood pressure reading in office with diagnosis of hypertension Insulin resistance Migraine Overweight Panic attack Prediabetes Vitamin D deficiency, unspecified [facility] Work Phone: Evaluation note Note Date & Type Note Facility Evaluation note Diagnosis Onset Date ADHD acute Elevated blood pressure read ing in office with diagnosis of hypertension acute Insulin resistance acute Overweight acute Prediabetes acute Vitamin D deficiency, unspecified acute [facility] Work Phone: Evaluation note Note Date & Type Note Facility Evaluation note Diagnosis Onset Date ADHD acute Anxiety and depression acute Elevated blood pressure read ing in office with diagnosis of hypertension acute Insulin resistance acute Migraine acute Overweight acute Panic attack acute Prediabetes acute Vitamin D deficiency, unspecified acute [facility] Work Phone: Evaluation note Note Date & Type Note Facility Evaluation note Diagnosis Gender dysphoria in adult- Primary Screening for depression Encounter for screening examination for other mental health and behavioral disorders Encounter before starting medication documented in this encounter [facility] Summary Purpose Family History Relationship Condition Age at Onset Recorded Date/T presley paternal grandmother Malignant neoplasm Unknown mother Diabetes mellitus Unknown father Hypertension Unknown Advance Directives Advance Directive Response Recorded Date/ Time Advance Directives No August 26 10:11am Additional Source Comments (unrecognized sect ion and content) No Status Records Found INFORMATION SOURCE (unrecogn ized section and content) DATE CREATED AUTHOR 12/15/2020 Tomás Ac [facility] DATE CREATED AUTHOR AUTHOR'S COLIN PATINO 12/16/2023 [facility] Care Teams (unrecognized sec tion and content) Team Status: Active Member Role Status Dates COLBY Ochoa Primary Care Provider Active Team Status: Inactive Member Role Status Dates COLBY Ochoa Primary Care Provider Active Start: November 13, 2023 End: November 13, 2023 Emilee Torres APRN Attending Provider Active Start: November 13, 2023 End: November 13, 2023 Team Status: Inactive Member Role Status Dates COLBY Ochoa Primary Care Provider Active Start: December 10, 2023 End: December 10, 2023 ANGE Wright Attending Provider Active Start: December 10, 2023 End: December 10, 2023 Fibrous Wallboard Inspector Relationship Specialty Start Date End Date Cheryl Herrera CNP [address] [place] [address] Referring Internal Medicine 06/09/23 Team Status: Inactive Member Role Status Dates COLBY Ochoa Primary Care Provider Active Start: December 26, 2023 End: December 26, 2023 Emilee Torres APRN Attending Provider Active Start: December 26, 2023 End: December 26, 2023 Goals (unrecognized section and content) Goals may be documented in a n alternate sectionGoals may be documented in an alternate sectionGoals may be documented in an alternate section Source Comments (unrecognize d section and content) In the event this informatio n is protected by the Federal Confidentiality of Alcohol and Drug Abuse Patient Records regulations: The Federal rules restrict any use of the information to criminally investigate or prosecute any alcohol or drug abuse patient.[facility] Reason for Visit (unrecogniz ed section and content) Reason Comments Establish Care [facility] FOR RECORDS PERTAINING TO PATIENTS WHO ARE OR HAVE BEEN ENROLLED IN A CHEMICAL DEPENDENCY/SUBSTANCEABUSE PROGRAM, SOME INFORMATION MAY BE OMITTED. This clinical summary was aggregated from multiple sources. Caution should be exercised in using it in the provision of clinical care. This summary normalizes information from multiple sources, and as a consequence, information in this document may materially change the coding, format and clinical context of patient data. In addition, data may be omitted in some cases. CLINICAL DECISIONS SHOULD BE BASED ON THE PRIMARY CLINICAL RECORDS. [facility]. provides no warranty or guarantee of the accuracy or completeness of information in this document.
[2024-02-03 12:05] LABS: Alanine Aminotransferase 26 U/L (14-59); Albumin Globulin Ratio 0.7; Alkaline Phosphatase 99 U/L (46-116); Anion Gap 13.5; Aspartate Amino Transferase 15 U/L (15-37); BUN Creatinine Ratio 15.6; Bilirubin Total 0.3 mg/dL (0.2-1.0); Calcium 9.1 mg/dL (8.5-10.1); Carbon Dioxide 24.6 mmol/L (21.0-32.0); Chloride 107 mmol/L (98-107); Chol HDL Ratio 3.9; Cholesterol 166 mg/dL (<=200); Estimated GFR (African America >60 (>=60 mL/min/1.73m^2); Estimated GFR (Non-African Ame >60 (>=60 mL/min/1.73m^2); Globulin 4.2 g/dL; Glucose 86 mg/dL (74-106); HDL Cholesterol 43 mg/dL (40-60); LDL Cholesterol Calculated 108.6 mg/dL; Potassium 4.1 mmol/L (3.5-5.1); Sodium 141 mmol/L (136-145); Total Protein 7.2 g/dL (6.4-8.2); Triglycerides 72 mg/dL (<=150); VLDL CHOLESTEROL 14.4 mg/dL
== END 2024-02-03 10:51 | disposition home or self-care (01) ==
LOC: LAB 10:50
PROVIDERS: PCP Nurse Practitioner Family; Visit Provider Student in an Organized Health Care Education/Training Program
DX: Z76.89 Persons encountering health services in other specified circumstances (principal)
CPT/HCPCS: 36415; 80053; 80061; 85025